=== PATIENT | female | born 1950 ===

== ENCOUNTER 2017-12-28 19:44 | Emergency (ER) | payer SELFPAY ==
--- NOTE | 2017-12-28 20:34 | UC ---
Shortness of Breath HPI - HPI Summary HPI Summary: This is liliya Nieto documenting for attending Damien Olivera MD. This patient is a 67 year old F presenting to [facility] accompanied by family with a chief complaint of SOB that began yesterday evening. The patient rates the pain 0/10 in severity. Symptoms are worse at night. Symptoms aggravated by lying down. Symptoms alleviated by standing up. Patient denies CP, fever, chills, cough, abd pain, and bilateral lower extremity edema. Pt denies having similar symptoms previously. Medications reviewed. Allergies reviewed. - History of Current Complaint Chief Complaint: UCRespiratory Stated Complaint: sob Time Seen by Provider: 12/28/17 20:23 Hx Obtained From: Patient, Family/Railway Engineer ?: No Onset/Duration: Sudden Onset, Lasting Days, Still Present Timing: Constant Current Severity: Mild Dyspnea At: Rest Aggrevating Factors: Recumbent Position Alleviating Factors: Upright Position Associated Signs & Symptoms: Positive: Other - Negative CP, fever, chills, cough , abd pain, and bilateral lower extremity edema - Allergy/Home Medications Allergies/Adverse Reactions: Allergies Allergy/AdvReac Type Severity Reaction Status Date / Time shellfish derived Allergy Rash Verified 12/28/17 19:57 Home Medications: Home Medications NK [No Home Medications Reported] 12/28/17 [History Confirmed 12/28/17] PMH/Surg Hx/FS Hx/Imm Hx Previously Healthy: Yes Endocrine History: Other Other Endocrine History: Negative diabetes Cardiovascular History: Other Other Cardiovascular History: Negative HTN - Surgical History Surgical History: None - Family History Known Family History: Negative: Respiratory Disease - Social History Occupation: Retired Lives: With Family Alcohol Use: None Substance Use Type: None Smoking Status (MU): Never Smoked Tobacco Review of Systems Constitutional: Other - Negative fever and chills Respiratory: Shortness Of Breath, Other - Negative cough Cardiovascular: Other - Negative CP Gastrointestinal: Other - Negative abd pain Musculoskeletal: Other: - Negative bilateral lower extremity edema All Other Systems Reviewed And Are Negative: Yes Physical Exam - Summary Physical Exam Summary: General: well-appearing, no pain distress Skin: warm, color reflects adequate perfusion, dry Head: normal Eyes: EOMI, ISELA ENT: normal Neck: supple, nontender Respiratory: CTA, breath sounds present Cardiovascular: RRR Abdomen: soft, nontender Bowel: present Musculoskeletal: normal, strength/ROM intact Neurological: sensory/motor intact, A&O x3 Psychological: affect/mood appropriate Triage Information Reviewed: Yes Vital Signs: Initial Vital Signs Temp 98.1 F 12/28/17 19:53 Pulse 88 12/28/17 19:53 Resp 18 12/28/17 19:53 BP 159/85 12/28/17 19:53 Pulse Ox 99 12/28/17 19:53 Vital Signs Reviewed: Yes Diagnostics - Radiology CXR Radiology Interpretation Completed By: ED Physician - CXR reveals, per [facility] physician, no acute disease. Shortness of Breath Dx - Course Course Of Treatment: NO EDEMA. DENIES CHEST PAIN. IMPROVED AFTER DUONEB. DISCUSSED CXR WITH THE PATIENT AND FAMILY. F/U PMD; RECHECK SOONER IF WORSE. - Differential Dx/Diagnosis Provider Diagnoses: DYSPNEA Discharge - Sign-Out/Discharge Documenting (check all that apply): Patient Departure - Discharge Plan Condition: Stable Disposition: HOME Patient Education Materials: Dyspnea (ED) Referrals: [facility] [place] [facility] [Outside] Additional Instructions: FOLLOW UP WITH YOUR DOCTOR. GET RECHECKED FOR ANY WORSENING OF YOUR CONDITION; CHEST PAIN, SHORTNESS OF BREATH, YOU FEEL ILL OR QUESTIONS OR CONCERNS. - Billing Disposition and Condition Condition: STABLE Disposition: Home
[2017-12-28] MEDS ORDERED: Albuterol/Ipratropium NEB.SOL* Albuterol 2.5 MG/Ipratropium 0.5 MG 3 ML INH ONE (20:38)
[2017-12-28] MEDS ORDERED: Albuterol HFA INHALER* 8 gm MDI INH ONE (21:27)
--- NOTE | 2017-12-29 08:01 | RAD ---
INDICATION: Short of breath COMPARISON: None TECHNIQUE: PA and lateral dual-energy views were obtained. FINDINGS: Bones/Soft Tissues: There are no acute bony findings. There is mild kyphoscoliosis. There is osteopenia with mild wedging of one of the lower thoracic vertebrae Cardiomediastinal: The cardiomediastinal silhouette is normal. Lungs: There are no infiltrates. Pleura: There are no pleural effusions. Other: None IMPRESSION: NO ACTIVE CARDIOPULMONARY DISEASE.
== END 2017-12-28 21:50 | disposition home or self-care (01) ==
LOC: UCEAST 19:44
DX: R06.00 Dyspnea, unspecified (principal)
CPT/HCPCS: 71046; 99202; A9270-GY; G0463